=== PATIENT | male | born 1995 | race American Indian/Alaskan Native ===

== ENCOUNTER 2016-07-04 01:19 | Emergency (ER) | payer OTHER ==
--- NOTE | 2016-07-04 07:48 | Emergency Department Report ---
HPI - General Chief Complaint: Upper Respiratory Infection Time Seen by Provider: 07/04/16 07:42 - HPI HPI: 21 y/ 0 male complain of intermittent chest pain x 2 weeks after smoking marijuana 2 weeks ago. She was seen at the [facility] 3 days ago and was given Phenergan. Denies any pain at present. Patient states that he did that he may have had some anxiety. Patient states that he took ibuprofen 800 and was given some relief. pt states he is current out ibuprofen. Denies any nausea /vomiting /.diarrhea at present. Denies any prior injury. ED Past Medical Hx - Past Medical History Previous Medical History?: Yes Additional medical history: Chest pain x 3 weeks since smoking marijuana - Surgical History Past Surgical History?: No - Social History Smoking Status: Current Every Day Smoker Substance Use Type: None ED Review of Systems ROS: Stated complaint: CHEST PAIN Other details as noted in HPI Constitutional: denies: chills, fever Eyes: denies: eye pain, eye discharge, vision change ENT: denies: ear pain, throat pain Respiratory: denies: cough, shortness of breath, wheezing Cardiovascular: denies: chest pain, palpitations Endocrine: no symptoms reported Gastrointestinal: denies: abdominal pain, nausea, diarrhea Genitourinary: denies: urgency, dysuria Musculoskeletal: denies: back pain, joint swelling, arthralgia Skin: denies: rash, lesions Neurological: denies: headache, weakness, paresthesias Psychiatric: denies: anxiety, depression Hematological/Lymphatic: denies: easy bleeding, easy bruising Physical Exam - Physical Exam Vital Signs: Vital Signs 07/04/16 01:25 Temperature 98.4 F Pulse Rate 87 Respiratory 18 Rate Blood Pressure 138/91 O2 Sat by Pulse 100 Oximetry Physical Exam: GENERAL: The patient is well-developed and well-nourished. Patient is in NAD. HENT: Normocephalic. Atraumatic. Patient has moist mucous membranes. Throat: No erythema, swelling or exudates. EYES: Extraocular motions are intact, PERRL NECK: Supple. No meningitic signs are noted. There is no adenopathy noted. CHEST/LUNGS: Clear to auscultation bilaterally. No wheezing, rales or rhonchi noted. There is no respiratory distress noted. HEART/CARDIOVASCULAR: Regular rate and rhythm. Normal S1 S2. No murmurs, rubs , clicks, or gallops. ABDOMEN: Abdomen is soft, nontender.. Bowel sounds normoactive. : Deferred. SKIN: There is no rash. There is no edema. There is no diaphoresis. NEURO: The patient is A&Ox3. The patient has no focal neurologic deficits. MUSCULOSKELETAL: There is no tenderness or deformity. There is no limitation range of motion. PSYCH: Pt has appropriate mood and affect. ED Course Vital Signs 07/04/16 01:25 Temperature 98.4 F Pulse Rate 87 Respiratory 18 Rate Blood Pressure 138/91 O2 Sat by Pulse 100 Oximetry ED Medical Decision Making - Medical Decision Making Chest pain no pain present will prescribe Ibuprofen 800 mg pt state pain was relieve after taken previous taken Critical care attestation.: If time is entered above; I have spent that time in minutes in the direct care of this critically ill patient, excluding procedure time. ED Disposition Clinical Impression: Chest wall pain Disposition: DISCHARGED TO HOME OR SELFCARE Is pt being admited?: No Does the pt Need Aspirin: No Condition: Stable Instructions: Costochondritis (ED), Chest Pain (ED) Referrals: PRIMARY CARE, [Primary Care Provider] - 3-5 Days [facility] [Outside] - 3-5 Days Forms: Work/School Release Form(ED) Time of Disposition: 07:51
[2016-07-04 08:04] VITALS: BP 135/91
== END 2016-07-04 08:04 | disposition home or self-care (01) ==
LOC: ED 01:19
DX: R07.89 Other chest pain (principal); F12.10 Cannabis abuse, uncomplicated; F41.9 Anxiety disorder, unspecified; F17.200 Nicotine dependence, unspecified, uncomplicated
CPT/HCPCS: 93005; 93010; 99282

== ENCOUNTER 2016-07-09 12:34 | Emergency (ER) | payer OTHER ==
[2016-07-09 13:37] VITALS: BP 139/86
== END 2016-07-09 16:41 | disposition left against medical advice (07) ==
LOC: ED 12:34
DX: R07.89 Other chest pain (principal); Z53.21 Procedure and treatment not carried out due to patient leaving prior to being seen by health care provider
CPT/HCPCS: 93005; 93010

== ENCOUNTER 2017-06-16 22:53 | Emergency (ER) | payer OTHER ==
--- NOTE | 2017-06-17 00:48 | XRay Report ---
FINAL REPORT EXAM: XR CHEST ROUTINE 2V HISTORY: cp/sob TECHNIQUE: PA and lateral views of the chest were submitted. FINDINGS: Heart size and mediastinum appear normal. The lungs are clear. Pleural fluid is not seen. The bones soft tissues reveal a mild dextroscoliosis of the thoracic spine. IMPRESSION: No active chest disease.
[2017-06-17 02:11] LABS: Basophils % (Auto) 0.6 % (0.0-1.8); Eosinophils % (Auto) 4.7 % (0.0-4.3); Hematocrit 47.1 % (35.5-45.6); Hemoglobin 15.8 gm/dl (11.8-15.2); Mean Corpuscular HGB Conc 34 % (32-34); Mean Corpuscular Hemoglobin 29 pg (28-32); Mean Corpuscular Volume 87 fl (84-94); Platelet Count 287 K/mm3 (140-440); Red Blood Count 5.43 M/mm3 (3.65-5.03); Red Cell Distribution Width 13.9 % (13.2-15.2); White Blood Count 7.8 K/mm3 (4.5-11.0)
[2017-06-17 02:20] LABS: Anion Gap 22 mmol/L; BUN/Creatinine Ratio 9; Blood Urea Nitrogen 6 mg/dL (9-20); Calcium 9.7 mg/dL (8.4-10.2); Carbon Dioxide 24 mmol/L (22-30); Chloride 98.6 mmol/L (98-107); Glucose 90 mg/dL (75-100); Potassium 4.5 mmol/L (3.6-5.0); Sodium 140 mmol/L (137-145)
[2017-06-17 02:53] LABS: Bilirubin,Urine NEG (Negative); Blood,Urine NEG (Negative); Ketones,Urine NEG (Negative); Leukocyte Esterase,Urine NEG (Negative); Mucus,Urine 1+ /HPF; Nitrite,Urine NEG (Negative); Protein,Urine <15 mg/dL mg/dL (Negative); Urobilinogen,Urine < 2.0 mg/dL (<2.0)
[2017-06-17] MEDS ORDERED: VISTARIL PO ONE (10:33)
--- NOTE | 2017-06-17 10:40 | Emergency Department Report ---
HPI - General Chief Complaint: Chest Pain Time Seen by Provider: 06/17/17 10:23 - HPI HPI: Room 20 The patient's 22-year-old male presenting with a chief complaint of chest pain. The patient stated for one month he's had intermittent chest pain described as pressure and sharpness that radiates around his chest. The patient states the pain has been constant since yesterday. Patient was shortness of breath and occasional diaphoresis. Patient denies nausea/vomiting, fever or recent flights/long car trips. Patient denies pleurisy. The patient states he has not seen his primary physician about the above complaints yet. Location: Chest Duration: Intermittent times one month Quality: Pressure/sharp Severity: Moderate Modifying factors: [see above] Context: [see above] Mode of transportation: [not driving] ED Past Medical Hx - Past Medical History Previous Medical History?: No Additional medical history: Chest pain x 3 weeks since smoking marijuana - Surgical History Past Surgical History?: No - Family History Family history: no significant, other (there is no family history of premature heart disease) - Social History Smoking Status: Current Some Day Smoker Substance Use Type: None (denies illicit drug use), Alcohol (occasional) - Medications Home Medications: Home Medications Medication Instructions Recorded Confirmed Last Taken Type Ibuprofen [Motrin] 800 mg PO Q8HR PRN #15 tablet 07/04/16 Unknown Rx hydrOXYzine PAMOATE [Vistaril] 50 mg PO Q6HR PRN #10 capsule 06/17/17 Unknown Rx ED Review of Systems ROS: Stated complaint: CP Other details as noted in HPI Constitutional: diaphoresis Respiratory: shortness of breath Cardiovascular: chest pain Gastrointestinal: denies: nausea, vomiting Musculoskeletal: back pain Neurological: paresthesias Physical Exam - Physical Exam Vital Signs: Vital Signs 06/17/17 06/17/17 06/17/17 00:20 04:27 08:43 Temperature 98.3 F 98.3 F 98.3 F Pulse Rate 74 71 70 Respiratory 20 18 Rate Blood Pressure 130/78 131/86 Blood Pressure 121/76 [Right] O2 Sat by Pulse 98 99 Oximetry 06/17/17 06/17/17 06/17/17 08:51 09:00 09:30 Temperature Pulse Rate 68 67 69 Respiratory 12 11 L 11 L Rate Blood Pressure 130/79 128/74 Blood Pressure [Right] O2 Sat by Pulse 99 99 99 Oximetry 06/17/17 10:00 Temperature Pulse Rate 72 Respiratory 12 Rate Blood Pressure 116/77 Blood Pressure [Right] O2 Sat by Pulse 98 Oximetry Physical Exam: GENERAL: The patient is well-developed well-nourished male lying on stretcher not appearing to be in acute distress. [] HEENT: Normocephalic. Atraumatic. Extraocular motions are intact. Patient has moist mucous membranes. NECK: Supple. Trachea midline CHEST/LUNGS: Clear to auscultation. There is no respiratory distress noted. HEART/CARDIOVASCULAR: Regular. There is no tachycardia. There is no gallop rub or murmur. ABDOMEN: Abdomen is soft, nontender. Patient has normal bowel sounds. There is no abdominal distention. SKIN: There is no diaphoresis. NEURO: The patient is awake, alert, and oriented. The patient is cooperative. The patient has normal speech MUSCULOSKELETAL: There is no evidence of acute injury. ED Course Vital Signs 06/17/17 06/17/17 06/17/17 00:20 04:27 08:43 Temperature 98.3 F 98.3 F 98.3 F Pulse Rate 74 71 70 Respiratory 20 18 Rate Blood Pressure 130/78 131/86 Blood Pressure 121/76 [Right] O2 Sat by Pulse 98 99 Oximetry 06/17/17 06/17/17 06/17/17 08:51 09:00 09:30 Temperature Pulse Rate 68 67 69 Respiratory 12 11 L 11 L Rate Blood Pressure 130/79 128/74 Blood Pressure [Right] O2 Sat by Pulse 99 99 99 Oximetry 06/17/17 10:00 Temperature Pulse Rate 72 Respiratory 12 Rate Blood Pressure 116/77 Blood Pressure [Right] O2 Sat by Pulse 98 Oximetry ED Medical Decision Making - Lab Data Result diagrams: 06/17/17 00:50 06/17/17 00:50 Laboratory Tests 06/17/17 06/17/17 06/17/17 00:50 00:50 01:06 WBC 7.8 RBC 5.43 H Hgb 15.8 H Hct 47.1 H MCV 87 MCH 29 MCHC 34 RDW 13.9 Plt Count 287 Lymph % (Auto) 28.7 [place] % (Auto) 6.8 Eos % (Auto) 4.7 H Baso % (Auto) 0.6 Lymph # 2.2 [place] # 0.5 Eos # 0.4 Baso # 0.0 Seg Neutrophils % 59.2 Seg Neutrophils # 4.6 Sodium 140 Potassium 4.5 Chloride 98.6 Carbon Dioxide 24 Anion Gap 22 BUN 6 L Creatinine 0.7 L Estimated GFR > 60 BUN/Creatinine Ratio 9 Glucose 90 Calcium 9.7 Troponin T < 0.010 Urine Color Yellow Urine Turbidity Clear Urine pH 5.0 Ur Specific [place] 1.019 Urine Protein <15 mg/dl Urine Glucose (UA) Neg Urine Ketones Neg Urine Blood Neg Urine Nitrite Neg Urine Bilirubin Neg Urine Urobilinogen < 2.0 Ur Leukocyte Esterase Neg Urine WBC (Auto) 1.0 Urine RBC (Auto) 2.0 U Epithel Cells (Auto) < 1.0 Urine Mucus 1+ 06/17/17 06/17/17 03:41 06:51 WBC RBC Hgb Hct MCV MCH MCHC RDW Plt Count Lymph % (Auto) [place] % (Auto) Eos % (Auto) Baso % (Auto) Lymph # [place] # Eos # Baso # Seg Neutrophils % Seg Neutrophils # Sodium Potassium Chloride Carbon Dioxide Anion Gap BUN Creatinine Estimated GFR BUN/Creatinine Ratio Glucose Calcium Troponin T < 0.010 < 0.010 Urine Color Urine Turbidity Urine pH Ur Specific [place] Urine Protein Urine Glucose (UA) Urine Ketones Urine Blood Urine Nitrite Urine Bilirubin Urine Urobilinogen Ur Leukocyte Esterase Urine WBC (Auto) Urine RBC (Auto) U Epithel Cells (Auto) Urine Mucus - EKG Data -: EKG Interpreted by Me EKG shows normal: sinus rhythm Rate: normal - EKG Data When compared to previous EKG there are: previous EKG unavailable Interpretation: nonspecific ST-T wave jayme (biphasic T-wave in lead 3) - Radiology Data Radiology results: report reviewed (chest x-ray, CT chest), image reviewed ( chest x-ray, CT chest) interpreted by me: Chest x-ray no focal infiltrate, no pneumothorax FINAL REPORT EXAM: XR CHEST ROUTINE 2V HISTORY: cp/sob TECHNIQUE: PA and lateral views of the chest were submitted. FINDINGS: Heart size and mediastinum appear normal. The lungs are clear. Pleural fluid is not seen. The bones soft tissues reveal a mild dextroscoliosis of the thoracic spine. IMPRESSION: No active chest disease. Transcribed By: RB Dictated By: SUDHAKAR GONZALEZ MD Electronically Authenticated By: SUDHAKAR GONZALEZ MD Signed Date/Time: 06/16/172044 DD/ 44 TD/TT: 06/16/172044 CTA CHEST INDICATION: Chest pain, shortness of breath. COMPARISON: None similar. FINDINGS: Chest CTA performed following intravenous administration of 100 cc of Omnipaque 350. Rotational MIP's also obtained. Normal heart size. No effusions or size significant adenopathy. Patent central airway. No aortic aneurysm, dissection or suspicious pulmonary arterial filling defects. Normal residual thymus. Normal thyroid. Clear lungs. Nonspecific air-filled distal esophageal wall prominence/thickening, not excluded for gastroesophageal reflux and/or hiatal hernia, amongst others. Approximately 4 x 4.2 cm mildly lobulated, hypervascular lesion noted posteromedially in the right hepatic lobe, partly exophytic and posterolateral to the IVC as on axial images 215-250. No peripheral nodular enhancement pattern. Left hepatic lobe tip noted approaching the spleen in the left upper quadrant. Mild thoracic scoliosis. CONCLUSION: 1. No acute chest CT abnormality or evidence of pulmonary embolism. 2. Approximately 4 cm hypervascular right hepatic lesion. Possibilities include an adenoma, atypical hemangioma or FNH, amongst others and remains incompletely characterized on this exam alone. Further evaluation as with ultrasound and/or liver mass protocol CT or MRI may be considered, as appropriate. 3. Few other findings, as above. Thank you for the opportunity to participate in this patient's care. Transcribed By: RS Dictated By: SHIRA CASH MD Electronically Authenticated By: SHIRA CASH MD Signed Date/Time: 06/17/171136 DD/ 26 TD/TT: 06/17/171136 - Differential Diagnosis PE, bronchitis, pneumothorax, anxiety, ACS Critical care attestation.: If time is entered above; I have spent that time in minutes in the direct care of this critically ill patient, excluding procedure time. ED Disposition Clinical Impression: Liver lesion, Chest pain Disposition: DC-01 TO HOME OR SELFCARE Is pt being admited?: No Does the pt Need Aspirin: No Condition: Stable Instructions: Chest Pain (ED) Additional Instructions: Return to the emergency department immediately should you develop worsening symptoms, fever, inability to tolerate food or liquid or any other concerns. Prescriptions: hydrOXYzine PAMOATE [Vistaril] 50 mg PO Q6HR PRN #10 capsule PRN Reason: Anxiety Referrals: DICRISTINA,CAREY, MD [Primary Care Provider] - 3-5 Days TOPHER RUBI MD [Staff Physician] - 3-5 Days (Dr. Rubi is a case maker. Please follow with him for further evaluation of your liver ) Time of Disposition: 11:49
--- NOTE | 2017-06-17 11:44 | Cat Scan Report ---
CTA CHEST INDICATION: Chest pain, shortness of breath. COMPARISON: None similar. FINDINGS: Chest CTA performed following intravenous administration of 100 cc of Omnipaque 350. Rotational MIP's also obtained. Normal heart size. No effusions or size significant adenopathy. Patent central airway. No aortic aneurysm, dissection or suspicious pulmonary arterial filling defects. Normal residual thymus. Normal thyroid. Clear lungs. Nonspecific air-filled distal esophageal wall prominence/thickening, not excluded for gastroesophageal reflux and/or hiatal hernia, amongst others. Approximately 4 x 4.2 cm mildly lobulated, hypervascular lesion noted posteromedially in the right hepatic lobe, partly exophytic and posterolateral to the IVC as on axial images 215-250. No peripheral nodular enhancement pattern. Left hepatic lobe tip noted approaching the spleen in the left upper quadrant. Mild thoracic scoliosis. CONCLUSION: 1. No acute chest CT abnormality or evidence of pulmonary embolism. 2. Approximately 4 cm hypervascular right hepatic lesion. Possibilities include an adenoma, atypical hemangioma or FNH, amongst others and remains incompletely characterized on this exam alone. Further evaluation as with ultrasound and/or liver mass protocol CT or MRI may be considered, as appropriate. 3. Few other findings, as above. Thank you for the opportunity to participate in this patient's care.
[2017-06-17 12:07] VITALS: BP 127/79
== END 2017-06-17 12:19 | disposition home or self-care (01) ==
LOC: ED 22:53
DX: K76.89 Other specified diseases of liver (principal); R07.9 Chest pain, unspecified; F17.200 Nicotine dependence, unspecified, uncomplicated
CPT/HCPCS: 36415; 71020; 71275; 80048; 81001; 84484; 85025; 93005; 93010; 99285; Q9967; Q0177

== ENCOUNTER 2017-12-03 11:49 | Emergency (ER) | payer OTHER ==
[2017-12-03 11:54] VITALS: BP 128/75
[2017-12-03] MEDS ORDERED: TORADOL IM ONE (14:15)
--- NOTE | 2017-12-03 14:20 | Emergency Department Report ---
ED Back Pain/Injury HPI - General Chief Complaint: Back Pain/Injury Stated Complaint: SEVERE BACK PAIN X3DAYS/LEFT SIDE Time Seen by Provider: 12/03/17 13:44 Source: patient Limitations: No Limitations - History of Present Illness Initial Comments: Mr. Mercedes is a very pleasant 22 yo male who injured his back while stretching. He felt a twinge when bending forward while stretching. Pain has worsened over the last 3 days. He saw swelling at the lower left back. MD Complaint: back pain, back injury -: Gradual, days(s) (3) Similar Symptoms Previously: Yes Place: other (occurred while stretching) Radiation: none Severity: severe Quality: sharp Consistency: constant Worsens With: movement Context: bending, other (while stretching) - Related Data Previous Rx's Medication Instructions Recorded Last Taken Type Ibuprofen [Motrin] 800 mg PO Q8HR PRN #15 tablet 07/04/16 Unknown Rx hydrOXYzine PAMOATE [Vistaril] 50 mg PO Q6HR PRN #10 capsule 06/17/17 Unknown Rx Cyclobenzaprine [Flexeril] 10 mg PO TID 5 Days #15 tablet 12/03/17 Unknown Rx HYDROcodone/APAP 5-325 [[place] 1 each PO Q4HR PRN #10 tablet 12/03/17 Unknown Rx 5/325] Ibuprofen 800 mg PO QID 5 Days #20 tablet 12/03/17 Unknown Rx Allergies Allergy/AdvReac Type Severity Reaction Status Date / Time No Known Allergies Allergy Verified 07/04/16 01:38 ED Review of Systems ROS: Stated complaint: SEVERE BACK PAIN X3DAYS/LEFT SIDE Other details as noted in HPI Comment: All other systems reviewed and negative Constitutional: denies: fever, malaise Cardiovascular: denies: chest pain ED Past Medical Hx - Past Medical History Previous Medical History?: Yes Additional medical history: Chest pain x 3 weeks since smoking marijuana, back pain and strain - Surgical History Past Surgical History?: No - Social History Smoking Status: Former Smoker Substance Use Type: Alcohol - Medications Home Medications: Home Medications Medication Instructions Recorded Confirmed Last Taken Type Ibuprofen [Motrin] 800 mg PO Q8HR PRN #15 tablet 07/04/16 Unknown Rx hydrOXYzine PAMOATE [Vistaril] 50 mg PO Q6HR PRN #10 capsule 06/17/17 Unknown Rx Cyclobenzaprine [Flexeril] 10 mg PO TID 5 Days #15 tablet 12/03/17 Unknown Rx HYDROcodone/APAP 5-325 [[place] 1 each PO Q4HR PRN #10 tablet 12/03/17 Unknown Rx 5/325] Ibuprofen 800 mg PO QID 5 Days #20 tablet 12/03/17 Unknown Rx ED Physical Exam - General Limitations: No Limitations General appearance: alert, in no apparent distress - Head Head exam: Present: atraumatic, normocephalic - Eye Eye exam: Present: normal appearance - ENT ENT exam: Present: mucous membranes moist - Neck Neck exam: Present: normal inspection. Absent: tenderness, meningismus - Respiratory Respiratory exam: Present: normal lung sounds bilaterally. Absent: respiratory distress, wheezes, rales, rhonchi - Cardiovascular Cardiovascular Exam: Present: regular rate, normal rhythm, normal heart sounds. Absent: systolic murmur, diastolic murmur, rubs, gallop - GI/Abdominal GI/Abdominal exam: Present: soft, normal bowel sounds. Absent: distended, tenderness, guarding, rebound - Rectal Rectal exam: Present: deferred - Extremities Exam Extremities exam: Present: normal inspection - Back Exam Back exam: Present: normal inspection - Neurological Exam Neurological exam: Present: alert, oriented X3 - Psychiatric Psychiatric exam: Present: normal affect, normal mood - Skin Skin exam: Present: warm, dry, intact, normal color. Absent: rash - Other Other exam information: FROM in flexion and extension lower back: Left CVA region: tender spasm with edema ED Course Vital Signs 12/03/17 11:51 Temperature 98.2 F Pulse Rate 84 Respiratory 18 Rate Blood Pressure 128/75 O2 Sat by Pulse 98 Oximetry ED Medical Decision Making - Medical Decision Making Mr. Mercedes has severe lower back strain with left edema and tenderness of the paraspinal muscles. I recommended heat/ice therapy. I recommended physical therapy or chiropractor treatment. rx: ibuprofen, norco, flexeril Critical care attestation.: If time is entered above; I have spent that time in minutes in the direct care of this critically ill patient, excluding procedure time. ED Disposition Clinical Impression: Low back strain Disposition: DC-01 TO HOME OR SELFCARE Is pt being admited?: No Does the pt Need Aspirin: No Condition: Stable Instructions: Low Back Strain (ED), Muscle Strain (ED) Prescriptions: Cyclobenzaprine [Flexeril] 10 mg PO TID 5 Days #15 tablet HYDROcodone/APAP 5-325 [[place] 5/325] 1 each PO Q4HR PRN #10 tablet PRN Reason: Pain Ibuprofen 800 mg PO QID 5 Days #20 tablet Referrals: GONZALES CERON FNP-C [Primary Care Provider] - 3-5 Days
== END 2017-12-03 14:33 | disposition home or self-care (01) ==
LOC: ED 11:49
DX: S39.012A Strain of muscle, fascia and tendon of lower back, initial encounter (principal); F12.10 Cannabis abuse, uncomplicated; Z87.891 Personal history of nicotine dependence; X50.1XXA Overexertion from prolonged static or awkward postures, initial encounter; Y93.89 Activity, other specified; Y92.89 Other specified places as the place of occurrence of the external cause; Y99.8 Other external cause status
CPT/HCPCS: 96372; 99282; J1885

== ENCOUNTER 2018-11-24 19:19 | Emergency (ER) | payer OTHER ==
--- NOTE | 2018-11-24 19:24 | Event Note ---
ED Screening Note ED Screening Note: co sore throat This initial assessment/diagnostic orders/clinical plan/treatment(s) is/are subject to change based on patients health status, clinical progression and re- assessment by fellow clinical providers in the ED. Further treatment and workup at subsequent clinical providers discretion. Patient/guardian urged not to elope from the ED as their condition may be serious if not clinically assessed and managed. Initial orders include:
[2018-11-24 20:03] VITALS: BP 125/81
--- NOTE | 2018-11-24 20:06 | Emergency Department Report ---
Minor Respiratory - HPI Chief Complaint: Sore Throat Stated Complaint: SORE THROAT Time Seen by Provider: 11/24/18 19:24 Duration: 3 Days Pain Location: Facial Severity: mild Minor Respiratory: Yes Sore Throat, Yes Able to Tolerate Fluids, No Rhinorrhea, No Ear Pain, No Cough, No Sick Contacts, No Hemoptysis, No Chest Pain, No Shortness of Breath, No Fever Other History: 23 yo with sore throat. no fever. voice different per pt. abc intact. no cough. VSS. nontoxic ED Review of Systems ROS: Stated complaint: SORE THROAT Other details as noted in HPI Comment: All other systems reviewed and negative ED Past Medical Hx - Past Medical History Previous Medical History?: Yes Hx Asthma: Yes Additional medical history: Chest pain x 3 weeks since smoking marijuana, back pain and strain - Surgical History Past Surgical History?: No - Family History Family history: no significant - Social History Smoking Status: Former Smoker Substance Use Type: None - Medications Home Medications: Home Medications Medication Instructions Recorded Confirmed Last Taken Type hydrOXYzine PAMOATE [Vistaril] 50 mg PO Q6HR PRN #10 capsule 06/17/17 Unknown Rx Cyclobenzaprine [Flexeril] 10 mg PO TID 5 Days #15 tablet 12/03/17 Unknown Rx HYDROcodone/APAP 5-325 [[place] 1 each PO Q4HR PRN #10 tablet 12/03/17 Unknown Rx 5/325] Ibuprofen [Ibuprofen 800] 800 mg PO QID 5 Days #20 tablet 12/03/17 Unknown Rx Ibuprofen [Motrin] 600 mg PO Q8H PRN #20 tablet 05/19/18 Unknown Rx Ibuprofen [Motrin 800 MG tab] 800 mg PO Q8HR PRN #15 tablet 10/28/18 Unknown Rx methOCARBAMOL [Robaxin TAB] 500 mg PO Q6H PRN #15 tablet 10/28/18 Unknown Rx Amoxicillin [Trimox CAP] 500 mg PO BID #20 capsule 11/24/18 Unknown Rx Minor Respiratory Exam - Exam General: Vital signs noted. No distress. Alert and acting appropriately. HEENT: Yes Pharyngeal Erythema, Yes Pharyngeal Exudates, Yes Moist Mucous Membranes, No Rhinorrhea, No Conjuctival Injection Ear: Neither TM Bulge, Neither TM Erythema, Neither EAC Pain, Neither EAC Discharge Neck: Yes Adenopathy, Yes Supple Lungs: No Good Air Exchange Heart: Yes Regular, No Murmur Abdomen: Yes Normal Bowel Sounds, No Tenderness, No Peritoneal Signs Skin: No Rash, No Edema Neurologic: Alert and oriented, no deficits. Musculoskeletal: Unremarkable. ED Medical Decision Making - Medical Decision Making simple uri hx strep hx asthma no meds at home abc intact controlling secretions no abscess taking po ambulatory and nontoxic dc home with amox and follow up instructions. Vital Signs 11/24/18 20:00 Temperature 98.1 F Pulse Rate 77 Respiratory 18 Rate Blood Pressure 125/81 O2 Sat by Pulse 98 Oximetry Critical care attestation.: If time is entered above; I have spent that time in minutes in the direct care of this critically ill patient, excluding procedure time. ED Disposition Clinical Impression: Pharyngitis Disposition: DC-01 TO HOME OR SELFCARE Is pt being admited?: No Does the pt Need Aspirin: No Condition: Stable Instructions: Pharyngitis (ED) Additional Instructions: motrin and or tylenol for fever hydrate well with water meds as ordered today follow up pcp referral below Referrals: [facility] [Outside] - 3-5 Days Forms: Work/School Release Form(ED) Time of Disposition: 20:04
[2018-11-25] MEDS ORDERED: ZOFRAN ONE (21:42)
[2018-11-25] MEDS ORDERED: NACL 0.9% 1000 ML 0 ML ONE (21:42)
== END 2018-11-24 20:12 | disposition home or self-care (01) ==
LOC: ED 19:19
DX: J02.9 Acute pharyngitis, unspecified (principal); J45.909 Unspecified asthma, uncomplicated; Z87.891 Personal history of nicotine dependence; F12.10 Cannabis abuse, uncomplicated
CPT/HCPCS: J2405; J7030

== ENCOUNTER 2019-01-07 14:04 | Emergency (ER) | payer OTHER ==
[2019-01-07 14:23] VITALS: BP 128/71
--- NOTE | 2019-01-07 14:23 | Emergency Department Report ---
Chief Complaint: Extremity Injury, Upper Stated Complaint: LT ARM PAIN - HPI History of Present Illness: 23 y/o male comes in for left wrist pain without any trauma or injury. Patient admits typing and on his phone texting. Patient has not taking anything for pain. - ROS Review of Systems: left wrist pain. - Exam Physical Exam: AxO times three. Playing on his phone. Wrist no swelling no tenderness FROM. MSE screening note: Focused history and physical exam performed. Due to findings the following was ordered: Take ibuprofen as needed for pain. Follow up with a othropedic or primary care provider. ED Disposition for MSE Clinical Impression: Wrist pain, acute Qualifiers: Laterality: left Qualified Code(s): M25.532 - Pain in left wrist Disposition: DC-01 TO HOME OR SELFCARE Is pt being admited?: No Does the pt Need Aspirin: No Condition: Stable Instructions: Arthralgia (ED) Additional Instructions: Take medication as prescribed Prescriptions: Ibuprofen [Motrin 600 MG tab] 600 mg PO Q8H PRN #20 tablet PRN Reason: Pain Referrals: SUDHAKAR GOMEZ MD [Staff Physician] - 3-5 Days
== END 2019-01-07 15:07 | disposition home or self-care (01) ==
LOC: ED 14:04
DX: M25.532 Pain in left wrist (principal)
CPT/HCPCS: 99281

== ENCOUNTER 2019-06-05 12:33 | Emergency (ER) | payer OTHER ==
--- NOTE | 2019-06-05 12:48 | Event Note ---
ED Screening Note Date of service: 06/05/19 Time: 12:47 ED Screening Note: 24 y o male presenst with left sided chest pain radiating to arm x today rates pain 10/10 with feeling heat beat faster This initial assessment/diagnostic orders/clinical plan/treatment(s) is/are subject to change based on patients health status, clinical progression and re- assessment by fellow clinical providers in the ED. Further treatment and workup at subsequent clinical providers discretion. Patient/guardian urged not to elope from the ED as their condition may be serious if not clinically assessed and managed. Initial orders include: cxr, ekg
[2019-06-05 12:49] VITALS: BP 145/85
[2019-06-05] MEDS ORDERED: IBUPROFEN 600 MG TAB PO ONE (13:13)
== END 2019-06-05 16:10 | disposition left against medical advice (07) ==
LOC: ED 12:33
DX: R07.89 Other chest pain (principal); Z53.21 Procedure and treatment not carried out due to patient leaving prior to being seen by health care provider
CPT/HCPCS: 93005; 93010

== ENCOUNTER 2020-02-08 10:17 | Emergency (ER) ==
[2020-02-08 10:31] VITALS: BP 113/81
== END 2020-02-08 13:32 | disposition left against medical advice (07) ==
LOC: ED 10:17
CPT/HCPCS: 93005

== ENCOUNTER 2020-07-05 04:37 | Emergency (ER) | payer SELFPAY ==
[2020-07-05 05:55] LABS: Basophils # (Auto) 0.1 K/mm3 (0.0-0.1); Basophils % (Auto) 0.7 % (0.0-1.8); Eosinophils # (Auto) 0.4 K/mm3 (0.0-0.4); Eosinophils % (Auto) 4.8 % (0.0-4.3); Hematocrit 42.5 % (35.5-45.6); Hemoglobin 14.2 gm/dl (11.8-15.2); Lymphocytes # (Auto) 2.7 K/mm3 (1.2-5.4); Lymphocytes % (Auto) 32.8 % (13.4-35.0); Mean Corpuscular HGB Conc 33 % (32-34); Mean Corpuscular Volume 87 fl (84-94); Monocytes # (Auto) 0.6 K/mm3 (0.0-0.8); Monocytes % (Auto) 7.9 % (0.0-7.3); Platelet Count 322 K/mm3 (140-440); Red Blood Count 4.86 M/mm3 (3.65-5.03); Red Cell Distribution Width 14.6 % (13.2-15.2)
[2020-07-05 05:58] LABS: Bilirubin,Urine NEG (Negative); Blood,Urine NEG (Negative); Color,Urine Yellow (Yellow); Mucus,Urine 2+ /HPF; Protein,Urine <15 mg/dL mg/dL (Negative); Urobilinogen,Urine < 2.0 mg/dL (<2.0)
[2020-07-05 06:04] LABS: Alanine Aminotransferase 24 units/L (7-56); Albumin 4.2 g/dL (3.9-5); BUN/Creatinine Ratio 14; Blood Urea Nitrogen 13 mg/dL (9-20); Calcium 8.9 mg/dL (8.4-10.2); Hemolysis Index 59
[2020-07-05] MEDS ORDERED: traMADol 50 MG TAB PO ONE (08:54)
--- NOTE | 2020-07-05 09:04 | Emergency Department Report ---
ED General Adult HPI - General Chief complaint: Abdominal Pain Stated complaint: STOMACH PAIN Time Seen by Provider: 07/05/20 08:46 Source: patient Mode of arrival: Ambulatory Limitations: No Limitations - History of Present Illness Initial comments: This is a 25-year-old man who has been to this emergency department multiple times in the past for evaluation of chest pain. Of relevance is that he was found to have an incidental four centimeter apparent hemangioma of the liver on a CTA of his chest that he was gotten for evaluation during one of his symptoms for chest pain. 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 States the office was in [place] and [facility]. He states that they never made arrangements for him to follow-up and he did not get the test performed. In any case, since last night he has had right upper quadrant discomfort predominantly. Sometimes it radiates to his back and sometimes to the left lower quadrant. He states that it was initiated by "eating Wheaties". He sta stephanie that he did not eat this morning. He denies nausea vomiting or diarrhea. Has had no change in bowel movements whatsoever. He denies fever or chills. The pain is somewhat dull mild to moderate in intensity. He states he has had no prior ultrasound of his gallbladder. -: hour(s) Location: abdomen, right Radiation: other (Above described) Quality: aching Consistency: intermittent Improves with: none Worsens with: eating Associated Symptoms: denies other symptoms Treatments Prior to Arrival: none - Related Data Previous Rx's Medication Instructions Recorded Last Taken Type hydrOXYzine PAMOATE [Vistaril] 50 mg PO Q6HR PRN #10 capsule 06/17/17 Unknown Rx Cyclobenzaprine [Flexeril] 10 mg PO TID 5 Days #15 tablet 12/03/17 Unknown Rx HYDROcodone/APAP 5-325 [[place] 1 each PO Q4HR PRN #10 tablet 12/03/17 Unknown Rx 5/325] Ibuprofen [Ibuprofen 800] 800 mg PO QID 5 Days #20 tablet 12/03/17 Unknown Rx Ibuprofen [Motrin 800 MG tab] 800 mg PO Q8HR PRN #15 tablet 10/28/18 Unknown Rx methOCARBAMOL [Robaxin TAB] 500 mg PO Q6H PRN #15 tablet 10/28/18 Unknown Rx Amoxicillin [Trimox CAP] 500 mg PO BID #20 capsule 11/24/18 Unknown Rx Ibuprofen [Motrin 600 MG tab] 600 mg PO Q8H PRN #20 tablet 01/07/19 Unknown Rx traMADoL [Ultram] 50 mg PO Q6HR PRN #7 tablet 07/05/20 Unknown Rx Allergies Allergy/AdvReac Type Severity Reaction Status Date / Time No Known Allergies Allergy Verified 11/24/18 19:27 ED Review of Systems ROS: Stated complaint: STOMACH PAIN Other details as noted in HPI Constitutional: denies: chills, fever Eyes: denies: eye pain, eye discharge, vision change ENT: denies: ear pain, throat pain Respiratory: denies: cough, shortness of breath, wheezing Cardiovascular: denies: chest pain, palpitations Endocrine: no symptoms reported Gastrointestinal: abdominal pain. denies: nausea, diarrhea Genitourinary: denies: urgency, dysuria Musculoskeletal: denies: joint swelling, arthralgia Skin: denies: rash, lesions Neurological: denies: headache, weakness, paresthesias Psychiatric: denies: anxiety, depression Hematological/Lymphatic: denies: easy bleeding, easy bruising ED Past Medical Hx - Past Medical History Previous Medical History?: Yes Hx Asthma: Yes Additional medical history: back pain and strain - Surgical History Past Surgical History?: No - Social History Smoking Status: Never Smoker Substance Use Type: None - Medications Home Medications: Home Medications Medication Instructions Recorded Confirmed Last Taken Type hydrOXYzine PAMOATE [Vistaril] 50 mg PO Q6HR PRN #10 capsule 06/17/17 Unknown Rx Cyclobenzaprine [Flexeril] 10 mg PO TID 5 Days #15 tablet 12/03/17 Unknown Rx HYDROcodone/APAP 5-325 [[place] 1 each PO Q4HR PRN #10 tablet 12/03/17 Unknown Rx 5/325] Ibuprofen [Ibuprofen 800] 800 mg PO QID 5 Days #20 tablet 12/03/17 Unknown Rx Ibuprofen [Motrin 800 MG tab] 800 mg PO Q8HR PRN #15 tablet 10/28/18 Unknown Rx methOCARBAMOL [Robaxin TAB] 500 mg PO Q6H PRN #15 tablet 10/28/18 Unknown Rx Amoxicillin [Trimox CAP] 500 mg PO BID #20 capsule 11/24/18 Unknown Rx Ibuprofen [Motrin 600 MG tab] 600 mg PO Q8H PRN #20 tablet 01/07/19 Unknown Rx traMADoL [Ultram] 50 mg PO Q6HR PRN #7 tablet 07/05/20 Unknown Rx ED Physical Exam - General Limitations: No Limitations General appearance: alert, in no apparent distress - Head Head exam: Present: atraumatic, normocephalic - Eye Eye exam: Present: normal appearance. Absent: scleral icterus - ENT ENT exam: Present: mucous membranes moist - Neck Neck exam: Present: normal inspection - Respiratory Respiratory exam: Present: normal lung sounds bilaterally. Absent: respiratory distress - Cardiovascular Cardiovascular Exam: Present: regular rate, normal rhythm. Absent: systolic m urmur, diastolic murmur, rubs, gallop - GI/Abdominal GI/Abdominal exam: Present: soft, normal bowel sounds, organomegaly (Consider hepatomegaly). Absent: distended, tenderness, guarding, rebound, rigid - Rectal Rectal exam: Present: deferred - Extremities Exam Extremities exam: Present: normal inspection - Back Exam Back exam: Present: normal inspection - Neurological Exam Neurological exam: Present: alert, oriented X3, CN II-XII intact. Absent: motor sensory deficit - Psychiatric Psychiatric exam: Present: normal affect, normal mood - Skin Skin exam: Present: warm, dry, intact, normal color. Absent: rash ED Course Vital Signs 07/05/20 07/05/20 04:42 09:40 Temperature 98.3 F 98.1 F Pulse Rate 95 H 76 Respiratory 20 16 Rate Blood Pressure 136/81 Blood Pressure 122/77 [Left] O2 Sat by Pulse 97 98 Oximetry - Reevaluation(s) Reevaluation #1: Patient found asleep. He was awoken. He had no complaints. He requested a work excuse. 07/05/20 10:52 ED Medical Decision Making - Lab Data Result diagrams: 07/05/20 04:52 07/05/20 04:52 Laboratory Results - last 24 hr 07/05/20 07/05/20 07/05/20 04:52 04:52 Unknown WBC 8.1 RBC 4.86 Hgb 14.2 Hct 42.5 MCV 87 MCH 29 MCHC 33 RDW 14.6 Plt Count 322 Lymph % (Auto) 32.8 [place] % (Auto) 7.9 H Eos % (Auto) 4.8 H Baso % (Auto) 0.7 Lymph # (Auto) 2.7 [place] # (Auto) 0.6 Eos # (Auto) 0.4 Baso # (Auto) 0.1 Seg Neutrophils % 53.8 Seg Neutrophils # 4.4 Sodium 140 Potassium 4.5 Chloride 103.5 Carbon Dioxide 25 Anion Gap 16 BUN 13 Creatinine 0.9 Estimated GFR > 60 BUN/Creatinine Ratio 14 Glucose 107 H Calcium 8.9 Total Bilirubin 0.20 AST 26 ALT 24 Alkaline Phosphatase 64 Total Protein 7.3 Albumin 4.2 Albumin/Globulin Ratio 1.4 Urine Color Yellow Urine Turbidity Clear Urine pH 6.0 Ur Specific [place] 1.030 Urine Protein <15 mg/dl Urine Glucose (UA) Neg Urine Ketones Neg Urine Blood Neg Urine Nitrite Neg Urine Bilirubin Neg Urine Urobilinogen < 2.0 Ur Leukocyte Esterase Neg Urine WBC (Auto) 1.0 Urine RBC (Auto) 2.0 Urine Mucus 2+ - Radiology Data Radiology results: report reviewed FINDINGS: Pancreas: Visualized portion shows no significant abnormality. Liver: Normal. Gallbladder: Normal. Bile ducts: Normal. Common Bile Duct measures 2 mm. Free fluid: None. Additional Findings: None. IMPRESSION: 1. No acute abnormality. 2. Previously seen lesion identified by CT is not identified by ultrasound. Critical care attestation.: If time is entered above; I have spent that time in minutes in the direct care of this critically ill patient, excluding procedure time. ED Disposition Clinical Impression: Abdominal pain Qualifiers: Abdominal location: right upper quadrant Qualified Code(s): R10.11 - Right upper quadrant pain Disposition: DC-01 TO HOME OR SELFCARE Is pt being admited?: No Does the pt Need Aspirin: No Condition: Stable Additional Instructions: Follow-up with [place]. Return any acute change or problem. Prescriptions: traMADoL [Ultram] 50 mg PO Q6HR PRN #7 tablet PRN Reason: Pain Referrals: PRIMARY CARE, [Primary Care Provider] - 3-5 Days [facility] [Provider Group] - 3-5 Days Forms: Work/School Release Form(ED) Time of Disposition: 10:52
[2020-07-05 09:42] VITALS: BP 122/77
--- NOTE | 2020-07-05 09:53 | Ultrasound Report ---
ULTRASOUND ABDOMEN, LIMITED (RIGHT UPPER QUADRANT) INDICATION: Right upper quadrant pain, previous CT with suzy. COMPARISON: CTA chest 06/17/2017. FINDINGS: Pancreas: Visualized portion shows no significant abnormality. Liver: Normal. Gallbladder: Normal. Bile ducts: Normal. Common Bile Duct measures 2 mm. Free fluid: None. Additional Findings: None. IMPRESSION: 1. No acute abnormality. 2. Previously seen lesion identified by CT is not identified by ultrasound. Signer Name: Tigre Bailey MD Signed: 07/05/2020 9:49 AM Workstation Name: [id number]
== END 2020-07-05 11:10 | disposition home or self-care (01) ==
LOC: ED 04:37
DX: R10.11 Right upper quadrant pain (principal); J45.909 Unspecified asthma, uncomplicated; Z79.899 Other long term (current) drug therapy
CPT/HCPCS: 36415; 76705; 80053; 81001; 85025

== ENCOUNTER 2021-11-12 02:51 | Emergency (ER) | payer SELFPAY ==
[2021-11-12 04:06] VITALS: BP 122/79
--- NOTE | 2021-11-13 09:58 | Electrocardiograph Report ---
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
== END 2021-11-12 09:30 | disposition left against medical advice (07) ==
LOC: ED 02:51
DX: R07.9 Chest pain, unspecified (principal); Z53.21 Procedure and treatment not carried out due to patient leaving prior to being seen by health care provider
CPT/HCPCS: 93005